=== PATIENT | female | born 1990 | race Caucasian/White ===

== ENCOUNTER 2017-06-26 11:25 | Emergency (ER) | payer MEDICAID ==
[~2017-06-26] VITALS: Ht 170.2 cm; Wt 117.5 kg
[~2017-06-26 11:25] MED LIST: CIPR500T78 PO; CLIN300C11 PO; CYCL10TA9 PO; FAMO20TA5 PO; NAPR500T PO; PRD20T PO; RT-ALBUINH IH; SCR1T PO
--- NOTE | 2017-06-26 12:09 | ED General ---
General Chief Complaint: General Problems/Pain Stated Complaint: BELLY BUTTON BLEEDING Nursing Triage Note: AMBULATED TO ROOM 09 WITH COMPLAINTS OF BLEEDING FROM HER BELLY BUTTON. THINKS IT IS RELATED TO HER POOR HYGIENE. Nursing Sepsis Screen: No Definite Risk Source of Information: Patient Exam Limitations: No Limitations History of Present Illness Time Seen by Provider: 12:10 Initial Comments 26-year-old female patient presents to the emergency department complains of eating from her bellybutton. Patient states she cleaned her bellybutton this a.m. and noticed blood on her finger. Patient thinks her "poor hygiene may have come back to bite her in the butt." Denies pain. Location Injury Occurred: Denies known injury Timing/Duration: Other (JPTA) Severity: Mild Allergies and Home Medications Allergies Coded Allergies: adhesive (Verified Allergy, Unknown, 04/26/14) Home Medications Albuterol Sulfate 8.5 Gm Hfa.aer.ad, 1-2 PUFF IH Q4H PRN for SHORTNESS OF BREATH , #1 Ref 0 Prescribed by: ENID MURPHY on 04/17/16 1740 Ciprofloxacin HCl 500 Mg Tablet, 500 MG PO BID, #6 Ref 0 Prescribed by: LARRY CASTILLO on 04/26/14 2326 Clindamycin HCl 300 Mg Capsule, 300 MG PO BID for 7 Days Prescribed by: SHAY MORRIS on 07/09/15 1312 Cyclobenzaprine HCl 10 Mg Tablet, 10 MG PO Q8H PRN for SPASMS, #14 Ref 0 Prescribed by: ENID MURPHY on 04/17/16 1728 Famotidine 20 Mg Tablet, 1 EACH PO BID, #30 Ref 0 Prescribed by: ENID MURPHY on 02/24/15 1837 Naproxen 500 Mg Tablet, 500 MG PO BID PRN for PAIN, #20 Ref 0 Prescribed by: ENID MURPHY on 04/17/16 1728 Prednisone 20 Mg Tab, 40 MG PO DAILY, #10 Ref 0 Prescribed by: ENID MURPHY on 04/17/16 1728 Sucralfate 1 Gm/10 Ml Susp, 2 TSP PO ACHS, #1 Ref 0 Prescribed by: ENID MURPHY on 02/24/15 1837 Constitutional: No chills, No fever, No malaise Respiratory: no symptoms reported Cardiovascular: no symptoms reported Gastrointestinal: see HPI, No abdominal pain, No constipation, No diarrhea, No nausea, No vomiting Genitourinary: no symptoms reported Skin: see HPI, No change in color, No lesions, No lumps, No rash Psychiatric/Neurological: No Symptoms Reported All Other Systems Reviewed Negative Unless Noted: Yes (Negative excepted noted.) Past [place]-Ykwxgd-Fmdxgg Hx Patient Social History Alcohol Use: Occasionally Uses Recreational Drug Use: Yes (POT) Smoking Status: Current Everyday Smoker Type Used: Cigarettes Recent Foreign Travel: No Contact w/Someone Who Travel: No Recent Infectious Disease Expo: No Recent Hopitalizations: Yes Seasonal Allergies Seasonal Allergies: No Surgeries History of Surgeries: No Surgeries: Section Respiratory History of Respiratory Disorde: No Cardiovascular History of Cardiac Disorders: No Neurological History of Neurological Disord: No Reproductive System Hx Reproductive Disorders: No Female Reproductive Disorders: Denies Genitourinary History of Genitourinary Disor: No Gastrointestinal History of Gastrointestinal Di: No Musculoskeletal History of Musculoskeletal Dis: Yes Musculoskeletal Disorders: Chronic Back Pain Endocrine History of Endocrine Disorders: No HEENT History of HEENT Disorders: No Cancer History of Cancer: No Psychosocial History of Psychiatric Problem: Yes Behavioral Health Disorders: Depression Integumentary History of Skin or Integumenta: No Blood Transfusions History of Blood Disorders: No Reviewed Nursing Assessment Reviewed/Agree w Nursing PMH: Yes Family Medical History Significant Family History: No Pertinent Family Hx Physical Exam Vital Signs Vital Sign - Last 12Hours 06/26/17 11:45 Temp 98.0 Pulse 80 Resp 18 B/P (MAP) 128/106 Pulse Ox 97 Capillary Refill : Less Than 3 Seconds General Appearance: No Apparent Distress, WD/WN Gastrointestinal: Normal Bowel Sounds, No Organomegaly, Non Tender, Soft, No Distended, Other (a group of hairs (consistent with hair clippings) noted at the base of the umbilicus with a scaly erythematous rash in the umbilicus consistent with adore. No active bleeding noted.) Neurologic/Psychiatric: Alert, Oriented x3, Normal Mood/Affect Skin: Normal Color, Warm/Dry, Other (a group of hairs (consistent with hair clippings) noted at the base of the umbilicus with a scaly erythematous rash in the umbilicus consistent with adore. No active bleeding noted.) I&D : Site: umbilicus Progress hair clippings removed from the base of the umbilicus with sterile q-tips. umbilicus cleansed with chlorasept and sterile saline. Progress/Results/Core Measures Suspected Sepsis Recent Fever Within 48 Hours: No Infection Criteria Present: Suspected New Infection New/Unexplained Altered Menta: No Sepsis Screen: No Definite Risk Sepsis Diagnosis: SIRS Temperature:98.0 Pulse: 80 Respiratory Rate: 18 Blood Pressure 128 /106 Mean: 113 Results/Orders Vital Signs/I&O Vital Sign - Last 12Hours 06/26/17 11:45 Temp 98.0 Pulse 80 Resp 18 B/P (MAP) 128/106 Pulse Ox 97 Capillary Refill : Less Than 3 Seconds Blood Pressure Mean: 113 Departure Impression Impression: Primary Impression: Candidiasis of skin Additional Impression: foreign object in naval Disposition: 01 HOME, SELF-CARE Condition: Improved Departure-Patient Inst. Decision time for Depature: 12:29 [address]errals: [facility] (PCP/Family) Primary Care Physician Patient Instructions: Yeast Infection (DC) Add. Discharge Instructions: All discharge instructions reviewed with patient and/or family. Voiced understanding. Medications as instructed. Cleanse the area with a clean Q-tip and a small amount of soap twice daily. Dry the area using a clean qtip. Follow-up with your primary care provider if needed. Return to the emergency department for worsened symptoms or any other concerns. Scripts Clotrimazole (Clotrimazole) 15 Gm Cream..g. 15 GM TP UD, #1 TUBE 0 Refills Apply sparingly to the affected area twice daily 7-10 days. Prov: ENID MURPHY 06/26/17 ENID MURPHY Jun 26, 2017 12:09
[2017-06-26] MEDS ORDERED: CLOT15CR5 TP (12:31)
[2017-06-26 12:34] VITALS: BP 128/106
== END 2017-06-26 12:34 | disposition home or self-care (01) ==
LOC: EDUNIT# 11:25 → ER 11:28
DX: T18.2XXA Foreign body in stomach, initial encounter (principal); B37.2 Candidiasis of skin and nail; F32.9 Major depressive disorder, single episode, unspecified; F17.210 Nicotine dependence, cigarettes, uncomplicated; Z87.59 Personal history of other complications of pregnancy, childbirth and the puerperium
CPT/HCPCS: 99281

== ENCOUNTER 2017-08-19 17:15 | Emergency (ER) | payer MEDICAID ==
[~2017-08-19] VITALS: Ht 170.2 cm; Wt 121.6 kg
[~2017-08-19 17:15] MED LIST changes: +CLOT15CR5 TP; +NAPR-1071 PO; -NAPR500T PO
--- OUTSIDE RECORDS SUMMARY | 2017-08-19 17:22 | XMS REPORT ---
Author LUCIAN Chiang eClinicalWorks Address Unknown Phone Unavailable Care Team Providers Care Industrial Maintenance Instructor Name Role Phone LUCIAN RIBEIRO CP Unavailable Allergies, Adverse Reactions, Alerts Substance Reaction Event Type Adhesive Info Not Available Non Drug Allergy Problems Problem Type Condition Code Onset Dates Condition Status Assessment HARINDER (generalized anxiety disorder) F41.1 Active Assessment Irregular menses N92.6 Active Problem PTSD (post-traumatic stress disorder) F43.10 Active Problem ADHD, predominantly inattentive type F90.0 Active Problem Bipolar I disorder with depression, severe F31.4 Active Assessment PTSD (post-traumatic stress disorder) F43.10 Active Assessment ADHD, predominantly inattentive type F90.0 Active Problem HARINDER (generalized anxiety disorder) F41.1 Active Assessment Bipolar I disorder with depression, severe F31.4 Active Medications No Known Medications Procedures Procedure Coding System Code Date URINE TEST CPT-4 41730 Jul 07, 2015 Office Visit, Est Pt., Level 5 CPT-4 74389 Jul 07, 2015 Vital Signs Date/Time: Jul 07, 2015 Cardiac Monitoring Heart Rate 78 bpm Weight 234.2 lbs Height 57 in BMI 50.67 Index Blood Pressure Diastolic 70 mmHg Blood Pressure Systolic 122 mmHg Results Name Result Date Reference Range Unit Abnormality Flag TEST, URINE (IN HOUSE) ----RESULTS positive [id number] ----Lot # [id number] ----Control + [id number] ----Exp date [id number] Summary Purpose eClinicalWorks Submission
--- OUTSIDE RECORDS SUMMARY | 2017-08-19 17:22 | XMS REPORT | Clinical Summary ---
Author Author [facility] Address Unknown Phone Unavailable Allergies Not on File Current Medications Not on file Active Problems Not on file Social History Tobacco Use Types Packs/Day Years Used Date Never Assessed Sex Assigned at Date Recorded Not on file Plan of Treatment Health Maintenance Due Date Last Done Comments HPV Vaccines (1 of 3 - 2003 Female 3 Dose Series) Varicella Vaccines (1 of 2005 2 - 2 Dose Adolescent Series) DTaP,Tdap,and Td Vaccines 2011 (1 - Tdap) CERVICAL CANCER SCREENING 2013 Influenza Vaccine (#1) 2017 Results Not on filefrom Last 3 Months
--- OUTSIDE RECORDS SUMMARY | 2017-08-19 17:22 | XMS REPORT ---
Author Author ERMIAS COOK [facility] eClinicalWorks Address Unknown Phone Unavailable Care Team Providers Care Drawing Checker Name Role Phone ERMIAS COOK CP Unavailable Allergies, Adverse Reactions, Alerts Substance Reaction Event Type Adhesive Info Not Available Non Drug Allergy Problems Problem Type Condition Code Onset Dates Condition Status Assessment Routine gynecological examination V72.31 Active Assessment Irregular menses N92.6 Active Problem Major depressive disorder, recurrent episode, moderate 296.32 Active Medications No Known Medications Procedures Procedure Coding System Code Date TRICHOMONAS VAGIN, DIR PROBE CPT-4 36560 Jun 04, 2015 GLYCATED HEMOGLOBIN TEST CPT-4 64762 Jun 04, 2015 No Charge CPT-4 79425 Jun 04, 2015 GONADOTROPIN (FSH) CPT-4 77837 Jun 04, 2015 GONADOTROPIN (LH) CPT-4 10061 Jun 04, 2015 LIPID PANEL CPT-4 29806 Jun 04, 2015 COMPLETE CBC W/AUTO DIFF WBC CPT-4 78674 Jun 04, 2015 CULTURE, BACTERIA, OTHER CPT-4 57317 Jun 04, 2015 SPECIMEN HANDLING CPT-4 85801 Jun 04, 2015 COMPREHEN METABOLIC PANEL CPT-4 96725 Jun 04, 2015 VENIPUNCT, ROUTINE* CPT-4 94541 Jun 04, 2015 Preventive Care Est Pt. Age 18-39 CPT-4 48176 Jun 04, 2015 ASSAY OF INSULIN CPT-4 04009 Jun 04, 2015 ASSAY OF PROLACTIN CPT-4 33762 Jun 04, 2015 Vital Signs Date/Time: Jun 04, 2015 Temperature 97.6 F Weight 231.8 lbs Height 57 in BMI 50.16 Index Blood Pressure Diastolic 80 mmHg Blood Pressure Systolic 132 mmHg Cardiac Monitoring Heart Rate 84 bpm Results Name Result Date Reference Range Unit Abnormality Flag PDF Report ROUTINE VENIPUNCTURE A1C (IN HOUSE) Summary Purpose eClinicalWorks Submission
--- OUTSIDE RECORDS SUMMARY | 2017-08-19 17:22 | XMS REPORT ---
Author Author LUCIAN RIBEIRO [facility] eClinicalWorks Address Unknown Phone Unavailable Care Team Providers Care Can Washer Name Role Phone LUCIAN RIBEIRO CP Unavailable Allergies No Known Allergies Problems Problem Type Condition Code Onset Dates Condition Status Problem PTSD (post-traumatic stress disorder) F43.10 Active Problem ADHD, predominantly inattentive type F90.0 Active Problem Bipolar I disorder with depression, severe F31.4 Active Problem HARINDER (generalized anxiety disorder) F41.1 Active Problem Major depressive disorder, recurrent episode, moderate 296.32 Active Medications No Known Medications Results No Known Results Summary Purpose eClinicalWorks Submission
--- OUTSIDE RECORDS SUMMARY | 2017-08-19 17:22 | XMS REPORT ---
Author Author JUAN A BOYLE Organization [employer] Address Unknown Phone Unavailable Care Team Providers Care Pay Per Click Strategist Name Role Phone JUAN A BOYLE CP Unavailable Allergies No Known Allergies Problems Problem Type Condition Code Onset Dates Condition Status Problem HARINDER (generalized anxiety disorder) F41.1 Active Problem PTSD (post-traumatic stress disorder) F43.10 Active Problem ADHD, predominantly inattentive type F90.0 Active Assessment PTSD (post-traumatic stress disorder) F43.10 Active Assessment Bipolar I disorder with depression, severe F31.4 Active Problem Glycosuria R81 Active Problem History of shingles Z86.19 Active Problem History of being obese Z86.39 Active Problem Major depressive disorder, recurrent, moderate F33.1 Active Problem Bipolar I disorder with depression, severe F31.4 Active Problem Tobacco smoking affecting O99.330 Active Problem Morbid obesity, unspecified obesity type E66.01 Active Medications No Known Medications Procedures Procedure Coding System Code Date Psychotherapy, patient &/family, 45 minutes, established patient CPT-4 34095 Jul 16, 2015 Results No Known Results Summary Purpose eClinicalWorks Submission
--- OUTSIDE RECORDS SUMMARY | 2017-08-19 17:22 | XMS REPORT ---
Author Author TERE ALAS [facility] eClinicalWorks Address Unknown Phone Unavailable Care Team Providers Care Cotton Buyer Name Role Phone TERE ALAS Unavailable Allergies No Known Allergies Problems Problem Type Condition Code Onset Dates Condition Status Problem HARINDER (generalized anxiety disorder) F41.1 Active Problem PTSD (post-traumatic stress disorder) F43.10 Active Problem ADHD, predominantly inattentive type F90.0 Active Assessment 15 weeks gestation of Z3A.15 Active Assessment Normal , first Z34.00 Active Problem Glycosuria R81 Active Problem History of shingles Z86.19 Active Problem History of being obese Z86.39 Active Problem Major depressive disorder, recurrent, moderate F33.1 Active Problem Bipolar I disorder with depression, severe F31.4 Active Problem Tobacco smoking affecting O99.330 Active Problem Morbid obesity, unspecified obesity type E66.01 Active Medications No Known Medications Procedures Procedure Coding System Code Date No Charge CPT-4 70608 Aug 11, 2015 URINE-NO MICRO CPT-4 19374 Aug 11, 2015 Vital Signs Date/Time: Aug 11, 2015 Temperature 98.0 F Weight 238.0 lbs Height 57 in BMI 51.503 Index Blood Pressure Diastolic 70 mmHg Blood Pressure Systolic 118 mmHg Results Name Result Date Reference Range Unit Abnormality Flag UA OB DIP (IN HOUSE) ----Glucose negative [id number] ----Protein negative [id number] Summary Purpose eClinicalWorks Submission
--- OUTSIDE RECORDS SUMMARY | 2017-08-19 17:22 | XMS REPORT ---
Author Author ERMIAS COOK Organization e[employer]Works Address Unknown Phone Unavailable Care Team Providers Care Hand Counter Name Role Phone ERMIAS COOK CP Unavailable Allergies No Known Allergies Problems Problem Type Condition Code Onset Dates Condition Status Assessment Irregular menses N92.6 Active Problem Major depressive disorder, recurrent episode, moderate 296.32 Active Medications Medication Code System Code Instructions Start Date End Date Status Dosage Diflucan [facility] [address]-88 150 MG Orally Once a day Jun 10, 2015 Jun 11, 2015 1 tablet Ortho Tri-Cyclen (28) [facility] [address]-73 0.18/0.215/0.25 MG-35 MCG Orally Once a day Jun 10, 2015 1 tablet Results No Known Results Summary Purpose eClinicalWorks Submission
--- OUTSIDE RECORDS SUMMARY | 2017-08-19 17:23 | XMS REPORT ---
Author Author JUAN A BOYLE Organization [employer]Works Address Unknown Phone Unavailable Care Team Providers Care Bulk Cooler Installer Name Role Phone JUAN A BOYLE CP Unavailable Allergies No Known Allergies Problems Problem Type Condition Code Onset Dates Condition Status Assessment Bipolar II disorder F31.81 Active Problem Major depressive disorder, recurrent episode, moderate 296.32 Active Medications No Known Medications Procedures Procedure Coding System Code Date Psych diagnostic evaluation, established patient CPT-4 01486 Jun 04, 2015 Results No Known Results Summary Purpose eClinicalWorks Submission
--- OUTSIDE RECORDS SUMMARY | 2017-08-19 17:23 | XMS REPORT | Continuity of Care Document ---
Author Author [facility] Address Unknown Phone Unavailable Allergies Active Description Code Type Severity Reaction Onset Reported/Identified Relationship to Patient Clinical Status Yes adhesive Drug Allergy N/A N/A 12/23/2013 Yes adhesive [id number] Drug Allergy Unknown N/A 04/26/2014 Medications There is no data. Problems Date Dx Coded Attending Type Code Diagnosis Diagnosed By [facility]2013 [facility] DEPRESSIVE RECURRENT MODERATE 10/22/2013 LANI MIRAMONTES APRN 296.32 MO DEPRESSIVE RECURRENT MODERATE 10/22/2013 LANI MIRAMONTES APRN 296.32 MO DEPRESSIVE RECURRENT MODERATE 04/26/2014 LARRY CASTILLO MD Ot 599.0 04/26/2014 LARRY CASTILLO MD Ot 787.01 02/24/2015 ENID BRAND Ot 535.50 02/24/2015 ENID BRAND Ot 789.06 07/09/2015 SHAY MORRIS APRN Ot O23.591 INFECTION OTH PRT GENITL TRCT IN PREGNAN 07/09/2015 SHAY MORRIS APRN Ot O99.89 OTH DISEASES AND CONDITIONS COMPL PREG/C 07/09/2015 SHAY MORRIS APRN Ot Z3A.10 10 WEEKS GESTATION OF 04/17/2016 ENID BRAND Ot J40 BRONCHITIS, NOT SPECIFIED ACUTE OR CH 04/17/2016 ENID BRAND Ot M54.5 LOW BACK PAIN 04/19/2016 ENID BRAND Ot J40 BRONCHITIS, NOT SPECIFIED ACUTE OR CH 04/19/2016 ENID BRAND Ot M54.5 LOW BACK PAIN 04/23/2016 ENID BRAND Ot J40 BRONCHITIS, NOT SPECIFIED ACUTE OR CH 04/23/2016 ENID BRAND Ot M54.5 LOW BACK PAIN 06/26/2017 ENID BRAND Ot B37.2 CANDIDIASIS OF SKIN AND NAIL 06/26/2017 ENID BRAND Ot F17.210 NICOTINE DEPENDENCE, CIGARETTES, UNCOMPL 06/26/2017 ENID BRAND Ot F32.9 MAJOR DEPRESSIVE DISORDER, SINGLE EPISOD 06/26/2017 ENID BRAND Ot R19.8 OTH SYMPTOMS AND SIGNS INVOLVING THE DGS 06/26/2017 ENID BRAND Ot T18.2XXA FOREIGN BODY IN STOMACH, INITIAL ENCOUNT 06/26/2017 ENID BRAND Ot Z87.59 PERSONAL HISTORY OF COMP OF PREG, CHLDBR 06/28/2017 ENID BRAND Ot B37.2 CANDIDIASIS OF SKIN AND NAIL 06/28/2017 ENID BRAND Ot F17.210 NICOTINE DEPENDENCE, CIGARETTES, UNCOMPL 06/28/2017 ENID BRAND Ot F32.9 MAJOR DEPRESSIVE DISORDER, SINGLE EPISOD 06/28/2017 ENID BRAND Ot R19.8 OTH SYMPTOMS AND SIGNS INVOLVING THE DGS 06/28/2017 ENID BRAND Ot T18.2XXA FOREIGN BODY IN STOMACH, INITIAL ENCOUNT 06/28/2017 ENID BRAND Ot Z87.59 PERSONAL HISTORY OF COMP OF PREG, CHLDBR Procedures Code [place] [address] PSYCH DIAGNOSTIC EVALUATION 10/28/2013 75763 EKG, TRACING 11/28/2013 Results There is no data. Encounters ACCT No. Visit Date/Time Discharge Status Pt. Type Provider Facility Loc./Unit Complaint [id number] 12/23/2013 13:54:00 12/23/2013 23:59:59 CLS Outpatient LANI MIRAMONTES APRN [id number] 11/28/2013 10:10:00 11/28/2013 23:59:59 CLS Outpatient LANI MIRAMONTES APRN [id number] 10/22/2013 15:08:00 10/22/2013 23:59:59 CLS Outpatient ALEXX HUGHES [id number] 06/26/2017 11:28:00 06/26/2017 12:34:00 DIS Emergency ENID BRAND [facility] ER BELLY BUTTON BLEEDING [id number] 04/17/2016 15:17:00 04/17/2016 17:48:00 DIS Emergency ENID BRAND [facility] ER LOWER BACK PAIN [id number] 07/09/2015 10:47:00 07/09/2015 13:14:00 DIS Emergency SHAY MORRIS APRN [facility] ER ABD PAIN/CRAMPING 12 WKS PREG [id number] 02/24/2015 17:04:00 02/24/2015 19:13:00 DIS Emergency ENID BRAND [facility] ER [id number] 04/26/2014 21:21:00 04/26/2014 23:32:00 DIS Emergency ANNA HANNA, LARRY Yates [facility] ER [id number] 08/19/2017 17:17:00 ACT Emergency ANTONY JOHNSON MD [facility] ER BACK PAIN
--- OUTSIDE RECORDS SUMMARY | 2017-08-19 17:23 | XMS REPORT ---
Author Author EMILY SAVAGE [facility] Address [address] [place] [address] Care Team Providers Care Supervisor Industrial Arts Education Name Role Phone EMILY SAVAGE Unavailable PROBLEMS Type Condition ICD9-CM Code OUP83-ZU Code Onset Dates Condition Status SNOMED Code Problem ADHD, predominantly inattentive type F90.0 Active 03091629 Problem Tobacco abuse Z72.0 Active 498282929 Problem PTSD (post-traumatic stress disorder) F43.10 Active 24633918 Problem Mixed hyperlipidemia E78.2 Active 989670217 Problem Elevated fasting glucose R73.01 Active 023196908 Problem Bipolar I disorder with depression, severe F31.4 Active 031503304032 Problem HARINDER (generalized anxiety disorder) F41.1 Active 46801654 Problem Morbid (severe) obesity due to excess calories E66.01 Active 337927707 Problem Body mass index (BMI) of 50-59.9 in adult Z68.43 Active 510993064 Problem Dietary counseling Z71.3 Active 508073988 Problem Tobacco abuse counseling Z71.6 Active 158107136 Problem Hair loss L65.9 Active 075166032 Problem Irregular menstrual cycle N92.6 Active 70467941 ALLERGIES No Information SOCIAL HISTORY Never Assessed PLAN OF CARE VITAL SIGNS MEDICATIONS Unknown Medications RESULTS No Results PROCEDURES Procedure Date Ordered Result Body Site Billing Notes on claim December 22, 2016 IMMUNIZATIONS No Known Immunizations MEDICAL (GENERAL) HISTORY Type Description Date Medical History shingles Medical History bipolar Medical History PTSD Medical History depression Surgical History section 2016 Hospitalization History Childhood: ER visits for dog bite to face; stitches to foot Hospitalization History c section four day hospital stay 2015
--- OUTSIDE RECORDS SUMMARY | 2017-08-19 17:23 | XMS REPORT ---
Author Author CALVIN SLATER eClinicalWorks Address Unknown Phone Unavailable Care Team Providers Care Event Security Officer Name Role Phone CALVIN SLATER Unavailable Allergies, Adverse Reactions, Alerts Substance Reaction Event Type Adhesive Info Not Available Non Drug Allergy Problems Problem Type Condition Code Onset Dates Condition Status Problem HARINDER (generalized anxiety disorder) F41.1 Active Problem PTSD (post-traumatic stress disorder) F43.10 Active Problem ADHD, predominantly inattentive type F90.0 Active Problem Glycosuria R81 Active Problem History of shingles Z86.19 Active Problem History of being obese Z86.39 Active Problem Major depressive disorder, recurrent, moderate F33.1 Active Problem Bipolar I disorder with depression, severe F31.4 Active Problem Tobacco smoking affecting O99.330 Active Problem Morbid obesity, unspecified obesity type E66.01 Active Assessment Influenza vaccination administered at current visit Z23 Active Assessment Morbid obesity, unspecified obesity type E66.01 Active Assessment Glycosuria R81 Active Assessment with 12 completed weeks gestation Z3A.12 Active Assessment Tobacco smoking affecting O99.330 Active Assessment Normal , first Z34.00 Active Assessment History of shingles Z86.19 Active Assessment Encounter for supervision of normal first , second trimester Z34.02 Active Medications Medication Code System Code Instructions Start Date End Date Status Dosage [facility] [address] 28-0.8 MG Orally daily Jul 08, 2015 1 Procedures Procedure Coding System Code Date SINGLE IMMUNIZATION ADMIN CPT-4 13155 Jul 08, 2015 VENIPUNCT, ROUTINE* CPT-4 50907 Jul 08, 2015 URINE CULTURE/COLONY COUNT CPT-4 27004 Jul 08, 2015 RBC ANTIBODY SCREEN CPT-4 55455 Jul 08, 2015 URINALYSIS, AUTO, W/O SCOPE CPT-4 55873 Jul 08, 2015 Office Visit, Est Pt., Level 3 CPT-4 92683 Jul 08, 2015 BLOOD TYPING, ABO CPT-4 75504 Jul 08, 2015 FLUARIX QUAD (3 & UP)-GSK-2014 CPT-4 01209 Jul 08, 2015 No Charge CPT-4 30788 Jul 08, 2015 ASSAY THYROID STIM HORMONE CPT-4 90332 Jul 08, 2015 BLOOD TYPING, RH (D) CPT-4 21018 Jul 08, 2015 RUBELLA ANTIBODY CPT-4 61239 Jul 08, 2015 Vital Signs Date/Time: Jul 08, 2015 Temperature 98.0 F Weight 237.4 lbs Height 57 in BMI 51.373 Index Blood Pressure Diastolic 78 mmHg Blood Pressure Systolic 118 mmHg Cardiac Monitoring Heart Rate 82 bpm Results No Known Results Immunizations Vaccine Administration Date FLUARIX QUAD (3 & UP)-[employer]-2014Jul 08, 2015 Summary Purpose eClinicalWorks Submission
--- NOTE | 2017-08-19 18:25 | ED Back Pain ---
General Chief Complaint: Back Problems Stated Complaint: BACK PAIN Nursing Triage Note: Pt. advises she twisted to set her sons sippy cup on the counter and when she did she began experiencing severe back pain and pain with ambulation. Nursing Sepsis Screen: No Definite Risk Source of Information: Patient Exam Limitations: No Limitations History of Present Illness Time Seen by Provider: 18:24 Initial Comments 26-year-old female patient presents to the emergency department with complaints of low back pain after twisting to set her son's sippy cup on the counter. Denies radiating pain. Denies bowel incontinence, bladder incontinence, numbness of the genitals. Denies taking any tylenol or motrin at home, because "I didn't have any". Patient describes the pain as severe, but moves without difficulty. Location: Paraspinous Muscles Timing/Duration: Intermittent, Other (just prior to arrival) Pain/Injury Location: Back (low back) Modifying Factors: Worse With Movement Associated Symptoms: muscle spasms, No numbness in legs/feet, No tingling in legs/feet, No sensory/motor loss, lower back pain, No loss of bladder control, No loss of bowel control Allergies and Home Medications Allergies Coded Allergies: adhesive (Verified Allergy, Unknown, 04/26/14) Home Medications Albuterol Sulfate 8.5 Gm Hfa.aer.ad, 1-2 PUFF IH Q4H PRN for SHORTNESS OF BREATH , #1 Ref 0 Prescribed by: ENID MURPHY on 04/17/16 1740 Ciprofloxacin HCl 500 Mg Tablet, 500 MG PO BID, #6 Ref 0 Prescribed by: LARRY CASTILLO on 04/26/14 2326 Clindamycin HCl 300 Mg Capsule, 300 MG PO BID for 7 Days Prescribed by: SHAY MORRIS on 07/09/15 1312 Clotrimazole 15 Gm Cream..g., 15 GM TP UD, #1 Ref 0 Apply sparingly to the affected area twice daily 7-10 days. Prescribed by: ENID MURPHY on 06/26/17 1231 Cyclobenzaprine HCl 10 Mg Tablet, 10 MG PO Q8H PRN for SPASMS, #14 Ref 0 Prescribed by: ENID MURPHY on 04/17/16 1728 Famotidine 20 Mg Tablet, 1 EACH PO BID, #30 Ref 0 Prescribed by: ENID MURPHY on 02/24/15 1837 Naproxen 500 Mg Tablet, 500 MG PO BID PRN for PAIN, #20 Ref 0 Prescribed by: ENID MURPHY on 04/17/16 172 Prednisone 20 Mg Tab, 40 MG PO DAILY, #10 Ref 0 Prescribed by: ENID MURPHY on 04/17/161727 Sucralfate 1 Gm/10 Ml Susp, 2 TSP PO ACHS, #1 Ref 0 Prescribed by: ENID MURPHY on 02/24/151836 Constitutional: no symptoms reported Respiratory: no symptoms reported Cardiovascular: no symptoms reported Gastrointestinal: no symptoms reported Genitourinary: no symptoms reported Musculoskeletal: see HPI, back pain, No joint pain Skin: no symptoms reported Psychiatric/Neurological: Denies Numbness, Denies Paresthesia, Denies Tingling , Denies Weakness All Other Systems Reviewed Negative Unless Noted: Yes (Negative excepted noted.) Past Qhkchhg-Dlcuwl-Rldhqf Hx Patient Social History Alcohol Use: Denies Use Recreational Drug Use: No Type Used: Cigarettes Recent Foreign Travel: No Contact w/Someone Who Travel: No Recent Infectious Disease Expo: No Recent Hopitalizations: No Physical Abuse: No Sexual Abuse: No Seasonal Allergies Seasonal Allergies: No Surgeries History of Surgeries: No Surgeries: Section Respiratory History of Respiratory Disorde: No Cardiovascular History of Cardiac Disorders: No Neurological History of Neurological Disord: No Reproductive System Hx Reproductive Disorders: No Female Reproductive Disorders: Denies Genitourinary History of Genitourinary Disor: No Gastrointestinal History of Gastrointestinal Di: No Musculoskeletal History of Musculoskeletal Dis: Yes Musculoskeletal Disorders: Chronic Back Pain Endocrine History of Endocrine Disorders: No HEENT History of HEENT Disorders: No Cancer History of Cancer: No Psychosocial History of Psychiatric Problem: Yes Behavioral Health Disorders: ADD/ADHD, Depression Suicide Risk Score: 0 Integumentary History of Skin or Integumenta: No Blood Transfusions History of Blood Disorders: No Reviewed Nursing Assessment Reviewed/Agree w Nursing PMH: Yes Family Medical History Significant Family History: No Pertinent Family Hx Physical Exam Vital Signs Vital Sign - Last 12Hours 08/19/17 17:25 Temp 98.4 Pulse 86 Resp 14 B/P (MAP) 136/87 (103) Pulse Ox 98 O2 Delivery Room Air Capillary Refill : Less Than 3 Seconds Progress/Results/Core Measures Results/Orders My Orders Orders - ENID MURPHY Ibuprofen Tablet (Motrin Tablet) (08/19/17 18:34) Vital Signs/I&O Vital Sign - Last 12Hours 08/19/17 17:25 Temp 98.4 Pulse 86 Resp 14 B/P (MAP) 136/87 (103) Pulse Ox 98 O2 Delivery Room Air Blood Pressure Mean: 103 Departure Impression Impression: Primary Impression: Back strain Disposition: 01 HOME, SELF-CARE Condition: Improved Departure-Patient Inst. Decision time for Depature: 18:35 Referrals: [facility] (PCP/Family) Primary Care Physician Patient Instructions: Low Back Pain (DC) Add. Discharge Instructions: All discharge instructions reviewed with patient and/or family. Voiced understanding. Tylenol extra strength [id number]-ypy-[id number] as directed for pain. Ibuprofen 800 mg by mouth every 8 hours as needed for pain [id number]. Ice pack alternating with heating pads or packs as needed for pain. Avoid any heavy lifting, pushing, pulling, or twisting for 3-5 days. Increase activity as tolerated. Follow-up with your family practitioner for recheck if no improvement in symptoms in 7-10 days. Return to the emergency department for worsened symptoms, bowel incontinence, bladder incontinence, numbness of the genitals, inability to move the lower extremities, or any other concerns. ENID MURPHY Aug 19, 2017 18:25
[2017-08-19] MEDS ORDERED: IBUPROFEN 800 MG (MOTRIN) TAB PO STA (18:34)
[2017-08-19 18:47] VITALS: BP 136/87
== END 2017-08-19 18:46 | disposition home or self-care (01) ==
LOC: EDUNIT# 17:15 → ER 17:17
DX: S39.012A Strain of muscle, fascia and tendon of lower back, initial encounter (principal); F32.9 Major depressive disorder, single episode, unspecified; F90.9 Attention-deficit hyperactivity disorder, unspecified type; Z87.59 Personal history of other complications of pregnancy, childbirth and the puerperium; X50.0XXA Overexertion from strenuous movement or load, initial encounter
CPT/HCPCS: 99283

== ENCOUNTER 2017-10-03 00:09 | Emergency (ER) | payer MEDICAID ==
[~2017-10-03] VITALS: Ht 170.2 cm; Wt 118.4 kg
--- OUTSIDE RECORDS SUMMARY | 2017-10-03 00:26 | XMS REPORT | Clinical Summary ---
Author Author [facility] Address Unknown Phone Unavailable Care Team Providers Care Kinder Teacher Name Role Phone PP Unavailable Allergies Not on File Current Medications [...]
--- OUTSIDE RECORDS SUMMARY | 2017-10-03 00:27 | XMS REPORT | Continuity of Care Document ---
Author Author [facility] Address Unknown Phone Unavailable Allergies Active Description Code Type Severity Reaction Onset Reported/Identified Relationship to Patient Clinical Status Yes adhesive Drug Allergy N/A N/A 12/23/2013 Yes adhesive [id number] Drug Allergy Unknown N/A 04/26/2014 Medications There is no data. Problems Date Dx Coded Attending Type Code Diagnosis [facility] By [facility] DEPRESSIVE RECURRENT MODERATE 10/22/2013 LANI [...] PERSONAL HISTORY OF COMP OF PREG, CHLDBR 08/19/2017 ENID BRAND Ot F32.9 MAJOR DEPRESSIVE DISORDER, SINGLE EPISOD 08/19/2017 ENID BRAND Ot F90.9 ATTENTION-DEFICIT HYPERACTIVITY DISORDER 08/19/2017 ENID BRAND Ot M54.5 LOW BACK PAIN 08/19/2017 ENID BRAND Ot S39.012A STRAIN OF MUSCLE, FASCIA AND TENDON OF L 08/19/2017 ENID BRAND Ot X50.0XXA OVEREXERTION FROM STRENUOUS MOVEMENT OR 08/19/2017 ENID BRAND Ot Z87.59 PERSONAL HISTORY OF COMP OF PREG, CHLDBR Procedures Code [place] [address] PSYCH DIAGNOSTIC EVALUATION 10/28/2013 62443 EKG, TRACING 11/28/2013 Results There is no data. Encounters ACCT No. Visit Date/Time Discharge Status Pt. Type Provider Facility Loc./Unit Complaint [id number] 12/23/2013:54:00 12/23/2013 23:59:59 CLS Outpatient LANI MIRAMONTES APRN [id number] 11/28/2013 10:10:00 11/28/2013 23:59:59 CLS Outpatient LANI MIRAMONTES APRN [id number] 10/22/2013 15:08:00 10/22/2013 23:59:59 CLS Outpatient ALEXX HUGHES [id number] 08/19/2017 17:17:00 08/19/2017 18:46:00 DIS Emergency ENID BRAND [facility] ER BACK PAIN [id number] 06/26/2017 11:28:00 06/26/2017 12:34:00 DIS Emergency ENID BRAND [facility] ER BELLY BUTTON BLEEDING [id number] 04/17/2016 15:17:00 04/17/2016 17:48:00 DIS Emergency ENID BRAND [facility] ER LOWER BACK PAIN [id number] 07/09/2015 10:47:00 07/09/2015 13:14:00 DIS Emergency SHAY MORRIS APRN [facility] ER ABD PAIN/CRAMPING 12 WKS PREG [id number] 02/24/2015 17:04:00 02/24/2015 19:13:00 DIS Emergency ENID BRAND [facility] ER [id number] 04/26/2014 21:21:00 04/26/2014 23:32:00 DIS Emergency LARRY CASTILLO MD [facility] ER
[2017-10-03] MEDS ORDERED: LURA60TA2 (01:33)
[2017-10-03] MEDS ORDERED: GUAN3TAB3 (01:33)
[2017-10-03] MEDS ORDERED: ATOM25CA5 (01:33)
[2017-10-03] MEDS ORDERED: SERT50TA9 (01:33)
--- NOTE | 2017-10-03 02:21 | ED General ---
General Chief Complaint: Dizziness/Syncope Stated Complaint: LIGHT HEADED,DIZZY,LEFT ARM NUMB Nursing Triage Note: dizziness after taking zoloft Nursing Sepsis Screen: No Definite Risk Allergies and Home Medications Allergies Coded Allergies: adhesive (Verified Allergy, Unknown, 04/26/14) Past Yhbegwt-Vzewcx-Wuynqa Hx Patient Social History Alcohol Use: Denies Use Recreational Drug Use: No Smoking Status: Current Someday Smoker Type Used: Cigarettes 2nd Hand Smoke Exposure: Yes Recent Foreign Travel: No Contact w/Someone Who Travel: No Recent Infectious Disease Expo: No Recent Hopitalizations: No Immunizations Up To Date Tetanus Booster (TDap): Unknown Seasonal Allergies Seasonal Allergies: No Surgeries History of Surgeries: No Surgeries: Section Respiratory History of Respiratory Disorde: No Cardiovascular History of Cardiac Disorders: No Neurological History of Neurological Disord: No Reproductive System : No Hx Reproductive Disorders: No Female Reproductive Disorders: Denies Genitourinary History of Genitourinary Disor: No Gastrointestinal History of Gastrointestinal Di: No Musculoskeletal History of Musculoskeletal Dis: Yes Musculoskeletal Disorders: Chronic Back Pain Endocrine History of Endocrine Disorders: No HEENT History of HEENT Disorders: No Cancer History of Cancer: No Psychosocial History of Psychiatric Problem: Yes Behavioral Health Disorders: ADD/ADHD, Anxiety, PTSD, Bipolar Integumentary History of Skin or Integumenta: No Blood Transfusions History of Blood Disorders: No Family Medical History Significant Family History: No Pertinent Family Hx Physical Exam Vital Signs Vital Signs - First Documented 10/03/17 01:25 Temp 97.8 Pulse 67 Resp 16 B/P (MAP) 136/89 (105) Pulse Ox 98 O2 Delivery Room Air Capillary Refill : Less Than 3 Seconds Progress/Results/Core Measures Suspected Sepsis Recent Fever Within 48 Hours: No Infection Criteria Present: None New/Unexplained Altered Menta: No Sepsis Screen: No Definite Risk Sepsis Diagnosis: SIRS Temperature:97.8 Pulse: 67 Respiratory Rate: 16 Blood Pressure 136 /89 Mean: 105 Results/Orders Lab Results Laboratory Tests Test 10/03/17 02:15 Range/Units Urine Test NEGATIVE NEGATIVE My Orders Orders - TERRY CESPEDES DO Drug Screen Stat (Urine) (10/03/17 02:08) Urine Bedside (10/03/17 02:08) Hcg,Qualitative Urine (10/03/17 02:18) Hydroxyzine Oral (Vistaril Capsule) (10/03/17 02:30) Vital Signs/I&O Vital Sign - Last 12Hours 10/03/17 01:25 Temp 97.8 Pulse 67 Resp 16 B/P (MAP) 136/89 (105) Pulse Ox 98 O2 Delivery Room Air Capillary Refill : Less Than 3 Seconds Blood Pressure Mean: 105 Departure Impression Impression: Primary Impression: Anxiety Additional Impression: POSSIBLE MEDICATION SIDE EFFECT Disposition: 01 HOME, SELF-CARE Condition: Stable Departure-Patient Inst. Referrals: [facility] (PCP/Family) Primary Care Physician Patient Instructions: Anxiety, Adult (DC), Side Effects From Medicines Add. Discharge Instructions: CALL MENTAL HEALTH IN THE MORNING TO ARRANGE FOLLOW UP APPOINTMENT THIS WEEK FOR FURTHER CARE HOLD ZOLOFT UNTIL YOU ARE RECHECKED BY MENTAL HEALTH All discharge instructions reviewed with patient and/or family. Voiced understanding. TERRY CESPEDES DO Oct 03, 2017 02:21
[2017-10-03] MEDS ORDERED: hydrOXYzine (VISTARIL) 25 MG CAP PO ONE (02:30)
[2017-10-03] MEDS ORDERED: hydrOXYzine (VISTARIL) 25 MG CAP ONE (02:33)
[2017-10-03 02:39] VITALS: BP 136/89
[2017-10-03 02:39] LABS: AMPHETAMINE SCREEN, URINE NEGATIVE (NEGATIVE); BARBITURATE SCREEN URINE NEGATIVE (NEGATIVE); BENZODIAZEPINES SCREEN URINE NEGATIVE (NEGATIVE); CANNABINOID SCREEN, URINE POSITIVE (NEGATIVE); COCAINE SCREEN URINE NEGATIVE (NEGATIVE); METHADONE STAT NEGATIVE (NEGATIVE); METHAMPHETAMINE SCREEN URINE S NEGATIVE (NEGATIVE); OPIATE SCREEN URINE NEGATIVE (NEGATIVE); OXYCODONE STAT NEGATIVE (NEGATIVE); PROPOXYPHENE STAT NEGATIVE (NEGATIVE); TRICYCLIC ANTIDEPRESSANTS SCRE NEGATIVE (NEGATIVE)
[2017-10-04] MEDS ORDERED: HYDR25CA PO (00:28)
== END 2017-10-03 02:39 | disposition home or self-care (01) ==
LOC: EDUNIT# 00:09 → ER 00:11
DX: F41.9 Anxiety disorder, unspecified (principal); F31.9 Bipolar disorder, unspecified; F90.9 Attention-deficit hyperactivity disorder, unspecified type; F17.210 Nicotine dependence, cigarettes, uncomplicated; Z87.59 Personal history of other complications of pregnancy, childbirth and the puerperium; Z32.02 Encounter for pregnancy test, result negative; Z91.048 Other nonmedicinal substance allergy status
CPT/HCPCS: 80306; 84703; 99283

== ENCOUNTER 2017-10-04 00:07 | Emergency (ER) | payer MEDICAID ==
[~2017-10-04] VITALS: Ht 170.2 cm; Wt 117.0 kg
[~2017-10-04 00:07] MED LIST changes: +ATOM25CA5; +GUAN3TAB3; +LURA60TA2; +SERT50TA9
--- OUTSIDE RECORDS SUMMARY | 2017-10-04 00:17 | XMS REPORT | Clinical Summary ---
Author Author [facility] Address Unknown Phone Unavailable Care Team Providers Care Camp Housekeeper Name Role Phone PP Unavailable Allergies Not [...]
--- OUTSIDE RECORDS SUMMARY | 2017-10-04 00:17 | XMS REPORT | Continuity of Care Document ---
Author Author [facility] Address Unknown Phone Unavailable Allergies Active Description Code Type Severity Reaction Onset Reported/Identified Relationship to Patient Clinical Status Yes adhesive Drug Allergy N/A N/A 12/23/2013 Yes adhesive [id number] Drug Allergy Unknown N/A 04/26/2014 Medications There is no data. Problems Date Dx Coded Attending Type Code Diagnosis Diagnosed By [facility]22[facility] DEPRESSIVE RECURRENT MODERATE [...] F17.210 NICOTINE DEPENDENCE, CIGARETTES, UNCOMPL 06/28/2017 ENID RBAND Ot F32.9 MAJOR DEPRESSIVE DISORDER, SINGLE EPISOD [...] Procedures Code [place] [address] PSYCH DIAGNOSTIC EVALUATION 10/28/2013 36471 EKG, TRACING 11/28/2013 Results Test Result Range Urine beta human chorionic gonadotropin (hCG) measurement - 10/03/17 02:15 Urine beta human chorionic gonadotropin (hCG) measurement NEGATIVE NEGATIVE Urine drug screening test - 10/03/17 02:15 Urine phencyclidine detection by screening method NEGATIVE NEGATIVE Urine benzodiazepines detection by screening method NEGATIVE NEGATIVE Urine cocaine detection NEGATIVE NEGATIVE Urine amphetamines detection by screening method NEGATIVE NEGATIVE Urine methamphetamine detection by screening method NEGATIVE NEGATIVE Urine cannabinoids detection by screening method POSITIVE NEGATIVE Urine opiates detection by screening method NEGATIVE NEGATIVE Urine barbiturates detection NEGATIVE NEGATIVE Screening urine tricyclic antidepressants detection NEGATIVE NEGATIVE Urine methadone detection by screening method NEGATIVE NEGATIVE Urine oxycodone detection NEGATIVE NEGATIVE Urine propoxyphene detection NEGATIVE NEGATIVE Encounters ACCT No. Visit Date/Time Discharge Status Pt. Type Provider Facility Loc./Unit Complaint [id number] 12/23/2013 13:54:00 12/23/2013 23:59:59 CLS Outpatient MIRAMONTES LEONELLANI [id number] 11/28/2013 10:10:00 11/28/2013 23:59:59 CLS Outpatient FE CASTANEDALANI [id number] 10/22/2013 15:08:00 10/22/2013 23:59:59 [facility] Outpatient ALEXX HUGHES [id number] 08/19/2017 17:17:00 08/19/2017 18:46:00 DIS Emergency ENID BRAND [facility] ER BACK PAIN [id number] 06/26/2017 11:28:00 06/26/2017 12:34:00 DIS Emergency ENID BRAND [facility] ER BELLY BUTTON BLEEDING [id number] 04/17/2016 15:17:00 04/17/2016 17:48:00 DIS Emergency ENID BRAND [facility] ER LOWER BACK PAIN [id number] 07/09/2015 10:47:00 07/09/2015 13:14:00 DIS Emergency SHAY MORRIS APRN [facility] ER ABD PAIN/CRAMPING 12 WKS PREG [id number] 02/24/2015 17:04:00 02/24/2015 19:13:00 DIS Emergency ENID BRAND [facility] ER [id number] 04/26/2014 21:21:00 04/26/2014 23:32:00 DIS Emergency LARRY CASTILLO MD [facility] [id number] 10/03/2017 02:28:00 Document Registration
[2017-10-04] MEDS ORDERED: HYDR25CA PO (00:28)
--- NOTE | 2017-10-04 00:29 | ED Psychosocial ---
General Chief Complaint: General Problems/Pain Stated Complaint: DIZZY,LEFT ARM PAIN,ANXIETY Source: patient, old records Exam Limitations: no limitations History of Present Illness Date Seen by Provider: Oct 04, 2017 Time Seen by Provider: 00:17 Initial Comments Patient presents to the ER by private conveyance with a chief complaint that she is feeling anxious her heart is beating out of her chest, tingling in her hands and shortness of breath. She says this is the same way she felt last night when she was having an anxiety attack and she came to the ER then was given hydroxyzine which helped immensely. She was not given a prescription for this and she has a follow-up appointment on the to see her psychiatrist at [facility]. She was recently started 2 or 3 weeks ago on Zoloft for depression. She is afraid the Zoloft may be causing her anxiety and so she stopped taking it yesterday. She has no suicidal ideation and not using any recreational drugs. Allergies and Home Medications Allergies Coded Allergies: adhesive (Verified Allergy, Unknown, 04/26/14) Constitutional: No chills, No diaphoresis EENTM: No ear discharge, No hearing loss Respiratory: No cough, No short of breath Cardiovascular: No chest pain, No edema, No Hx of Intervention, palpitations Gastrointestinal: No abdominal pain, No constipation, No diarrhea, No nausea Genitourinary: No discharge, No dysuria : No Past Skmfobw-Iupgct-Ixfpht Hx Patient Social History Alcohol Use: Denies Use Smoking Status: Current Everyday Smoker Type Used: Cigarettes 2nd Hand Smoke Exposure: Yes Recent Foreign Travel: No Contact w/Someone Who Travel: No Recent Hopitalizations: No Immunizations Up To Date Tetanus Booster (TDap): Unknown Seasonal Allergies Seasonal Allergies: No Surgeries History of Surgeries: No Surgeries: Section Respiratory History of Respiratory Disorde: No Cardiovascular History of Cardiac Disorders: No Neurological History of Neurological Disord: No Reproductive System Hx Reproductive Disorders: No Female Reproductive Disorders: Denies Genitourinary History of Genitourinary Disor: No Gastrointestinal History of Gastrointestinal Di: No Musculoskeletal History of Musculoskeletal Dis: Yes Musculoskeletal Disorders: Chronic Back Pain Endocrine History of Endocrine Disorders: No HEENT History of HEENT Disorders: No Cancer History of Cancer: No Psychosocial History of Psychiatric Problem: Yes Behavioral Health Disorders: ADD/ADHD, Anxiety, PTSD, Bipolar Integumentary History of Skin or Integumenta: No Blood Transfusions History of Blood Disorders: No Family Medical History Significant Family History: No Pertinent Family Hx Physical Exam Vital Signs Capillary Refill : General Appearance: WD/WN, no apparent distress HEENT: PERRL/EOMI, pharynx normal Respiratory: no respiratory distress, no accessory muscle use Cardiovascular: normal peripheral pulses, regular rate, rhythm Neurologic/Psychiatric: alert, oriented x 3, other (anxious affect) Appearance/Memory: appropriate appearance, appropriate insight, neat Behavior/Eye Contact: cooperative, good eye contact, normal speech Thoughts/Hallucinations: normal thought pattern, no apparent hallucination Skin: normal color, warm/dry Progress/Results/Core Measures Results/Orders My Orders Orders - ANTONY JOHNSON Hydroxyzine Oral (Vistaril Capsule) (10/04/17 00:30) Departure Impression Impression: Primary Impression: Anxiety attack Disposition: 01 HOME, SELF-CARE Condition: Stable Departure-Patient Inst. Decision time for Depature: 00:27 Referrals: [facility] Primary Care Physician Patient Instructions: Panic Disorder (DC) Add. Discharge Instructions: If you begin to have another panic attack please take some deep breathing exercises and feel the ear coming in and out of your mouth. Sit down in a cool quite calm place close your eyes drink some cold water. Take one tablet of the hydroxyzine/Vistaril every 6 hours as needed. Keep your follow-up appointment on the eighth with your psychiatrist to discuss using Zoloft. All discharge instructions reviewed with patient and/or family. Voiced understanding. Scripts Hydroxyzine Pamoate (Vistaril) 25 Mg Capsule 25 MG PO Q6H Y for ANXIETY, #20 CAP 0 Refills Prov: ANTONY JOHNSON 10/04/17 Copy Copies To 1: ZEE KAPLAN DO ANTONY JOHNSON Oct 04, 2017 00:29
[2017-10-04] MEDS ORDERED: hydrOXYzine (VISTARIL) 25 MG CAP PO ONE (00:30)
[2017-10-04 00:33] VITALS: BP 128/76
== END 2017-10-04 00:33 | disposition home or self-care (01) ==
LOC: EDUNIT# 00:07 → ER 00:13
DX: F41.0 Panic disorder [episodic paroxysmal anxiety] (principal); F90.9 Attention-deficit hyperactivity disorder, unspecified type; F31.9 Bipolar disorder, unspecified; F43.10 Post-traumatic stress disorder, unspecified; F17.210 Nicotine dependence, cigarettes, uncomplicated; Z87.59 Personal history of other complications of pregnancy, childbirth and the puerperium; Z91.048 Other nonmedicinal substance allergy status
CPT/HCPCS: 99283